=== PATIENT | male | born 1975 | race Caucasian/White ===

== ENCOUNTER 2023-04-27 06:19 | Day surgery (SDC) | payer MEDICAID ==
[2023-04-27] VITALS (7 sets, daily range): BP systolic 134–158; BP diastolic 82–101; PULSE 57–65; RESP 13–18; TEMP 97.6; O2SAT 94–97
[~2023-04-27] VITALS: Ht 175.3 cm; Wt 108.7 kg
[2023-04-27] MEDS ORDERED: normal saline 1000ml 1,000 ML IV PRN (06:45)
[2023-04-27] MEDS ORDERED: DOCU-22 PO (07:12)
[2023-04-27] MEDS ORDERED: CLON0.3T PO (07:12)
[2023-04-27] MEDS ORDERED: CALC0.2535 PO (07:12)
[2023-04-27] MEDS ORDERED: TERA5CAP4 (07:12)
[2023-04-27] MEDS ORDERED: ATOR40TA72 (07:12)
[2023-04-27] MEDS ORDERED: DILT-115 (07:12)
[2023-04-27] MEDS ORDERED: LISI20TA28 PO (07:12)
[2023-04-27] MEDS ORDERED: HYDR100T27 PO (07:12)
[2023-04-27] MEDS ORDERED: CARV3.123 PO (07:12)
[2023-04-27] MEDS ORDERED: ISOS120T13 PO (07:12)
[2023-04-27] MEDS ORDERED: FURO80TA3 PO (07:12)
[2023-04-27] MEDS ORDERED: FLUT16SP26 (07:12)
[2023-04-27] MEDS ORDERED: FURO20TA4 PO (07:12)
[2023-04-27] MEDS ORDERED: PHO667C PO (07:12)
[2023-04-27] MEDS ORDERED: SODI650T29 PO (07:13)
[2023-04-27 07:41] LABS: BASOPHILS % (AUTO) 0.9 % (0-1); EOSINOPHILS # (AUTO) 0.2 X10'3 (0-0.9); EOSINOPHILS % (AUTO) 4.1 % (0-6); HEMATOCRIT 36.3 % (42.0-52.0); HEMOGLOBIN 11.6 g/dl (14.0-17.9); LYMPHOCYTES # (AUTO) 0.7 X10'3 (1.1-4.8); LYMPHOCYTES % (AUTO) 15.1 % (21-51); MEAN CORPUSCULAR HEMOGLOBIN 28.9 PG (27.0-31.0); MEAN CORPUSCULAR VOLUME 90.2 FL (78-98); MEAN PLATELET VOLUME 8.6 FL (7.4-10.4); MONOCYTES # (AUTO) 0.6 X10'3 (0-0.9); MONOCYTES % (AUTO) 11.9 % (2-12); NEUTROPHILS # (AUTO) 3.3 X10'3 (1.8-7.7); PLATELET COUNT 182 X10'3 (140-440); RED BLOOD COUNT 4.03 X10'6 (4.70-6.10); RED CELL DISTRIBUTION WIDTH 17.2 % (11.5-14.5); WHITE BLOOD COUNT 4.8 X10'3 (4.5-11.0)
[2023-04-27] MEDS ORDERED: midazolam 1 mg/ML 2ml injection ONE (07:50)
[2023-04-27] MEDS ORDERED: fentaNYL/PF 50MCG/1 ML 2ML syringe ONE (07:50)
[2023-04-27] MEDS ORDERED: LIDOcaine 1% 30ml preserv. free vial ONE (07:50)
[2023-04-27] MEDS ORDERED: iohexol 300mg/ml 100ml inj. ONE (07:51)
[2023-04-27] MEDS ORDERED: heparin 1,000 UNITS/NS 500ml 500 ML ONE (07:51)
[2023-04-27 07:53] LABS: ALBUMIN 3.5 G/DL (3.4-5.0); ANION GAP 11 (8-16); BLOOD UREA NITROGEN 27 MG/DL (7-18); CALCIUM 8.3 MG/DL (8.5-10.1); CHLORIDE 100 MMOL/L (99-107); GLUCOSE 102 MG/DL (70-104); POTASSIUM 4.3 MMOL/L (3.5-5.1); SODIUM 140 MMOL/L (135-145); TOTAL CARBON DIOXIDE 28.9 MMOL/L (24-32); eGFR 10 ML/MIN
[2023-04-27 08:01] LABS: BUN/CREATININE RATIO 4.3 (10.0-20.0); CREATININE 6.31 MG/DL (0.60-1.10)
== END 2023-04-27 12:10 | disposition home or self-care (01) ==
LOC: SSTAY O 06:19
PROVIDERS: ATTEND Radiology Vascular & Interventional Radiology
DX: T82.858A Stenosis of other vascular prosthetic devices, implants and grafts, initial encounter (principal); I12.0 Hypertensive chronic kidney disease with stage 5 chronic kidney disease or end stage renal disease; N18.6 End stage renal disease; G47.33 Obstructive sleep apnea (adult) (pediatric); E78.5 Hyperlipidemia, unspecified; Z88.8 Allergy status to other drugs, medicaments and biological substances; Z79.899 Other long term (current) drug therapy; Y83.2 Surgical operation with anastomosis, bypass or graft as the cause of abnormal reaction of the patient, or of later complication, without mention of misadventure at the time of the procedure; Y92.89 Other specified places as the place of occurrence of the external cause
CPT/HCPCS: 36415; 36902; 80048; 85025; 85610; 99152; 99153; C1769; J1644; J2250; J3010; J3490; J7030; Q9967; A4620; A6213; C1726; C1894

== ENCOUNTER 2025-01-02 15:36 | Outpatient (CLI) | payer MEDICAID ==
[~2025-01-02] VITALS: Ht 167.6 cm; Wt 103.0 kg
[~2025-01-02 15:36] MED LIST: ATOR40TA72; CALC0.2535 PO; CARV3.123 PO; CLON0.3T PO; DILT-115; DOCU-22 PO; FLUT16SP26; FURO20TA4 PO; FURO80TA3 PO; HYDR100T12 PO; ISOS120T13 PO; LISI20TA28 PO; PHO667C PO; SODI650T29 PO; TERA5CAP4
[2025-01-02] MEDS: albuterol 2.5 MG/3 ML nebule NEB ONE (16:26)
[2025-01-02 16:27] VITALS: PULSE 64; RESP 16; O2SAT 96
[2025-01-02 16:39] VITALS: PULSE 64; RESP 14
== END 2025-01-02 23:59 | disposition home or self-care (01) ==
LOC: RT 15:36
PROVIDERS: ATTEND Family Medicine
DX: R06.02 Shortness of breath (principal)
CPT/HCPCS: 94060; 94729; 94760